=== PATIENT | female | born 1985 | race Caucasian/White ===

== ENCOUNTER 2017-12-04 05:13 | Day surgery (SDC) | payer OTHER ==
[~2017-12-04] VITALS: Ht 172.7 cm; Wt 118.7 kg
[~2017-12-04 05:13] MED LIST: HYDR-3245 PO; L-NO1TBD18 PO; METF500T5 PO
[2017-12-04] MEDS ORDERED: LACTATED RINGERS 1,000 ML IV SCH (05:52)
[2017-12-04 05:55] VITALS: BP 137/92
[2017-12-04] MEDS ORDERED: THROMBIN 5,000 UNIT VIAL TP ONE (06:06)
[2017-12-04] MEDS ORDERED: BUPIVACAINE 0.25% ONE (06:07)
[2017-12-04] MEDS ORDERED: BACITRACIN 50,000 UNIT ONE (06:08)
[2017-12-04] MEDS ORDERED: BUPIVACAINE/PF-EPI 0.5% 1:200K ONE (06:08)
[2017-12-04 06:14] LABS: HCG UR SG 1.024 (1.003-1.030)
[2017-12-04] MEDS ORDERED: MIDAZOLAM 1 MG/ML, 2ML ONE (06:18)
[2017-12-04] MEDS ORDERED: FENTANYL PF 250 MCG/5ML ONE (06:18)
[2017-12-04] MEDS ORDERED: PROPOFOL 10 MG/ML, 20ML ONE (06:23)
[2017-12-04] MEDS ORDERED: NEOSTIGMINE 1 MG/ML, 10ML ONE (06:24)
[2017-12-04] MEDS ORDERED: DEXAMETHASONE 4 MG/ML, 1ML ONE ×2 (06:25)
[2017-12-04] MEDS ORDERED: GLYCOPYRROLATE 0.4 MG/2 ML, 2ML ONE (06:25)
[2017-12-04] MEDS ORDERED: SODIUM CHLORIDE 0.9% PF 10ML ONE (06:26)
[2017-12-04] MEDS ORDERED: OxyconTIN ER 20 MG TAB.ER ONE (06:26)
[2017-12-04] MEDS ORDERED: SCOPOLAMINE PATCH, 1.5MG PATCH.TD72 TD ONE ×2 (06:26→06:30)
[2017-12-04] MEDS ORDERED: CEFAZOLIN 1,000 MG ONE ×2 (06:26)
[2017-12-04] MEDS ORDERED: ONDANSETRON ODT 8 MG ONE (06:27)
[2017-12-04] MEDS ORDERED: GABAPENTIN 300 MG CAPSULE ONE (06:27)
[2017-12-04] MEDS ORDERED: ACETAMINOPHEN 500 MG TABLET ONE (06:27)
[2017-12-04] MEDS ORDERED: ACETAMINOPHEN 500 MG TABLET PO ONE (06:30)
[2017-12-04] MEDS ORDERED: ONDANSETRON ODT 8 MG PO ONE (06:30)
[2017-12-04] MEDS ORDERED: GABAPENTIN 300 MG CAPSULE PO ONE (06:30)
[2017-12-04] MEDS ORDERED: OxyconTIN ER 20 MG TAB.ER PO ONE (06:30)
[2017-12-04] MEDS ORDERED: PROPOFOL 50 ML ONE ×2 (06:31→07:50)
[2017-12-04] MEDS ORDERED: BUPIVACAINE/PF 0.25% EPIDPUSH ONE (06:42)
[2017-12-04] MEDS ORDERED: FENTANYL PF 100 MCG/2ML IV PRN (07:00)
[2017-12-04] MEDS ORDERED: PROMETHAZINE 25 MG SUPP PR PRN (07:00)
[2017-12-04] MEDS ORDERED: PROMETHAZINE 25 MG/ML, 1ML IV PRN (07:00)
[2017-12-04] MEDS ORDERED: HYDROmorphone 1 MG/ML, 1ML IV PRN (07:00)
[2017-12-04] MEDS ORDERED: ONDANSETRON ODT 8 MG PO PRN (07:00)
[2017-12-04] MEDS ORDERED: hydrALAzine 20 MG/ML, 1ML IV PRN (07:00)
[2017-12-04] MEDS ORDERED: LABETALOL 5MG/ML, 20ML IV PRN (07:00)
[2017-12-04] MEDS ORDERED: MORPHINE SULFATE 4 MG/ML, 1ML IVPush PRN (07:00)
[2017-12-04] MEDS ORDERED: OXYcodone 5 MG/5 ML ORAL.SOL UDC PO PRN (07:00)
[2017-12-04] MEDS ORDERED: ONDANSETRON 2MG/ML, 2ML IV PRN (07:00)
[2017-12-04] MEDS ORDERED: PROMETHAZINE 12.5 MG SUPP PR PRN (07:00)
[2017-12-04] MEDS ORDERED: MEPERIDINE/PF 25MG/0.5ML IVPush PRN (07:00)
[2017-12-04] MEDS ORDERED: ROCURONIUM 10 MG/ML,10ML ONE (07:03)
[2017-12-04] MEDS ORDERED: BUPIVACAINE LIPOSOME/PF INFIL ONE (08:07)
[2017-12-04] MEDS ORDERED: FENTANYL PF 100 MCG/2ML ONE (08:46)
[2017-12-04] MEDS ORDERED: HYDROcodone/APAP 5/325 TABLET PO PRN (14:30)
[2017-12-04] MEDS ORDERED: HYDROcodone/APAP 5/325 TABLET ONE (14:33)
== END 2017-12-04 14:45 ==
LOC: OUT 05:13
PROVIDERS: ATTEND Neurological Surgery
DX: M51.16 Intervertebral disc disorders with radiculopathy, lumbar region (principal); M48.062 Spinal stenosis, lumbar region with neurogenic claudication; E11.9 Type 2 diabetes mellitus without complications
CPT/HCPCS: 63030; 63056; 72100; 81025; 82962; C9290; J0690; J1100; J2250; J2704; J2710; J3010; J3490; J7120; Q0162